=== PATIENT | female | born 1965 | race Two or more races ===

== ENCOUNTER 2018-05-11 22:56 | Emergency (ER) | payer OTHER ==
[~2018-05-11] VITALS: Ht 152.4 cm; Wt 81.6 kg
[2018-05-11] MEDS ORDERED: GABAPENTIN100 MG ORAL (23:07)
--- NOTE | 2018-05-11 23:23 | Emergency Room Report ---
History of Present Illness General Chief Complaint: Overdose Source: Patient Present Illness HPI 51HF family members called 911 for "possible od." Pt. really has no medical complaints. She c/o a lot of personal family stressors. She is noncompliant with her Gabapentin. She admits to two beers tonight. No sz. No cp, sob, abd pain, n/v, no headache, no head trauma, no LOC. Tolerating po normally. It seems like family called b/c of all the social issues. The bottle of Gabapentin with the patient was from six weeks ago, dispense #90 and there is 79 remaining. Allergies: Coded Allergies: No Known Allergies (Unverified , 05/11/18) Patient History Last Menstrual Period: mar 2018 Now: No - unknown Nursing Documentation-PM Past Medical History: No Stated History Review of Systems Constitutional: Reports: see HPI Eye: Reports: no symptoms ENT: Reports: no symptoms Respiratory: Reports: no symptoms Cardiovascular: Reports: no symptoms Gastrointestinal: Reports: no symptoms Genitourinary: Reports: no symptoms Musculoskeletal: Reports: no symptoms Skin: Reports: no symptoms Psychiatric: Reports: no symptoms Neurological: Reports: no symptoms Endocrine: Reports: no symptoms Hematologic/Lymphatic: Reports: no symptoms Allergic: Reports: no symptoms All Other Systems: negative except mentioned in HPI Physical Exam Vital Signs Date Time Temp Pulse Resp B/P (MAP) Pulse Ox O2 Delivery O2 Flow Rate FiO2 05/11/18 23:01 97.5 87 18 101/62 96 Room Air Sp02 EP Interpretation: reviewed, normal General Appearance: normal inspection, well appearing, no apparent distress, alert, GCS 15, non-toxic Head: normocephalic, atraumatic Eyes: bilateral eye normal inspection, bilateral eye PERRL, bilateral eye EOMI ENT: normal ENT inspection, hearing grossly normal, normal pharynx, no angioedema, normal voice, moist mucus membranes Neck: normal inspection, full range of motion, supple, no meningismus, no bony tend Respiratory: normal inspection, lungs clear, normal breath sounds, no rhonchi, no respiratory distress, no retraction, no accessory muscle use, no wheezing Cardiovascular #1: normal inspection, regular rate, rhythm, no edema Gastrointestinal: normal inspection, normal bowel sounds, non tender, soft, no mass, non-distended Musculoskeletal: gait/station normal, normal range of motion Neurologic: normal inspection, alert, oriented x3, responsive, motor strength/ tone normal Psychiatric: normal inspection, judgement/insight normal, memory normal, depressed affect, anxious, other - tearful; mildly intoxicated Suicide Risk Assessment: Suicidal Ideation: No Had intent to initiate attempt: No Pt's plan for suicide attempt: No Has means to complete attempt: No Skin: normal inspection, normal color, no rash, warm/dry Medical Decision Making Diagnostic Impression: Primary Impression: Depression (emotion) ER Course There is no acute medical issue. Vitals: HR 90, BP 126/96. Pulse ox 100%. Pt. is alert, coherent, cognitively intact, able to explain herself. She is mildly intoxicated, she is emotionally somewhat tearful about many personal/family issues. There is no need to do any medical w/u at this time. No indication of any medical or acute psych issue. Pt. is simply mildly intoxicated and mildly distraught. She can rest here for a couple of hours then d/c. Family came to p/u patient. OK to d/c with family. Pt. without any additional complaint/problem. Rhythm Strip Diag. Results Rhythm Strip Time: 23:23 EP Interpretation: yes Rate: NSR 76 Rhythm: NSR Last Vital Signs Date Time Temp Pulse Resp B/P (MAP) Pulse Ox O2 Delivery O2 Flow Rate FiO2 05/11/18 23:01 97.5 87 18 101/62 96 Room Air Status: improved Disposition: HOME, SELF-CARE Patient Instructions: Depression, Adult, [id number] Jamie Edward M.D. May 11, 2018 23:23
[2018-05-12] VITALS: BP 99/64
[2018-05-12 00:30] VITALS: BP 117/62
[2018-05-12 00:40] VITALS: BP 99/64
== END 2018-05-12 00:40 | disposition home or self-care (01) ==
LOC: EDBD 22:56 → EMR 23:30
DX: F32.9 Major depressive disorder, single episode, unspecified (principal)
CPT/HCPCS: 99283